=== PATIENT | male | born 1965 | race Caucasian/White ===

== ENCOUNTER 2023-05-14 15:33 | Outpatient (REF) | payer OTHER, SELFPAY | END 2023-05-14 15:34 | disposition home or self-care (01) | LOC: HO.SH 15:33 | PROVIDERS: Visit Provider Nurse Practitioner Family | DX: Z01.118 Encounter for examination of ears and hearing with other abnormal findings (principal); H90.3 Sensorineural hearing loss, bilateral | CPT/HCPCS: 92557 ==